=== PATIENT | male | born 1950 | race Caucasian/White ===

== ENCOUNTER 2017-05-21 18:28 | Emergency (ER) | payer OTHER ==
[~2017-05-21] VITALS: Ht 182.9 cm; Wt 85.5 kg
[~2017-05-21 18:28] MED LIST: ASPI-664 PO; ATOR40TA68 PO; EXCED PO; LYR75 PO; OXYC30TA64 PO; RANI150T9 PO
[2017-05-21 18:38] VITALS: Ht 182.9 cm; Wt 85.5 kg
[2017-05-21] MEDS ORDERED: ASPIRIN 81 MG TAB PO ONE (20:00)
[2017-05-21 20:11] LABS: BASOPHIL # 0.1 10^3/ul (0.0-0.1); BASOPHILS % 1.2 % (0.0-2.0); EOSINOPHILS % 0.8 % (0.0-7.0); HEMATOCRIT 43.2 % (42.0-52.0); HEMOGLOBIN 14.6 g/dl (14.0-18.0); LYMPHOCYTES # 1.4 10^3/ul (0.8-2.9); LYMPHOCYTES % 28.6 % (15.0-51.0); MEAN CORPUSCULAR HEMOGLOBIN 31.3 pg (29.0-33.0); MEAN CORPUSCULAR HGB CONC 33.8 g/dl (32.0-37.0); MEAN CORPUSCULAR VOLUME 92.5 fl (82.0-101.0); MEAN PLATELET VOLUME 9.8 fl (7.4-10.4); MONOCYTE # 0.5 10^3/ul (0.3-0.9); MONOCYTES % 9.6 % (0.0-11.0); NEUTROPHILS % 59.4 % (39.0-77.0); PLATELET COUNT 192 10^3/UL (140-415); RED BLOOD COUNT 4.67 10^6/ul (4.70-6.10); RED CELL DISTRIBUTION WIDTH 13.2 % (11.5-14.5); WHITE BLOOD COUNT 4.9 10^3/ul (4.8-10.8)
[2017-05-21 20:26] LABS: ALANINE AMINOTRANSFERASE 53 IU/L (13-69); ALBUMIN 4.6 g/dl (3.3-4.9); ALBUMIN/GLOBULIN RATIO 1.24; ALKALINE PHOSPHATASE 66 IU/L (42-121); ANION GAP 14 (8-16); ASPARTATE AMINO TRANSFERASE 33 IU/L (15-46); BILIRUBIN,INDIRECT 0.2 mg/dl (0-1.1); BILIRUBIN,TOTAL 0.2 mg/dl (0.2-1.3); BLOOD UREA NITROGEN 23 mg/dl (7-20); CALCIUM 9.4 mg/dl (8.4-10.2); CARBON DIOXIDE 24 mmol/L (21-31); CHLORIDE 104 mmol/L (97-110); CREATININE 1.14 mg/dl (0.61-1.24); GLUCOSE 113 mg/dl (70-220); POTASSIUM 3.7 mmol/L (3.5-5.1); SODIUM 138 mmol/L (135-144); TOTAL PROTEIN 8.3 g/dl (6.1-8.1)
[2017-05-21 20:43] LABS: B-TYPE NATRIURETIC PEPTIDE 138 PG/ML (0-125)
--- NOTE | 2017-05-21 20:46 | RADRPT ---
PROCEDURE: XR Chest. CLINICAL INDICATION: Chest and abdominal pain TECHNIQUE: AP Portable chest. COMPARISON: None available FINDINGS: The soft tissues and bones are remarkable for multiple EKG leads superimposed over chest wall. 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 No focal infiltrates , masses, or effusions are noted. The mediastinum and heart are normal. No pneumothorax is present . IMPRESSION: 1. No radiographic evidence for acute cardiopulmonary disease RPTAT: HDC .Fernanda Daley MD, MD Date Time Electronically viewed and signed by .Fernanda Daley MD, MD on 05/21/2017 20:46 .C/
[2017-05-21 20:50] LABS: TROPONIN-I < 0.012 ng/ml (0.00-0.12)
[2017-05-21 21:30] VITALS: BP 125/77; PULSE 70; RESP 20; TEMP 98.4
[2017-05-21] MEDS ORDERED: TRAM-40 PO (21:55)
[2017-05-21] MEDS ORDERED: OMEG-135 PO (21:55)
[2017-05-21] MEDS ORDERED: IBUP800T25 PO (21:55)
[2017-05-21] MEDS ORDERED: CALC-277 PO (21:55)
[2017-05-21] MEDS ORDERED: SIMV40TA2 PO (21:55)
--- NOTE | 2017-05-21 22:26 | ERD ---
ER Documentation Chief Complaint Date/Time DATE: 05/21/17 TIME: 22:05 Chief Complaint sent by omd for cp and sob x 3 days with abnormal ekg at the clinic HPI 66-year-old man referred by his PMD for possible abnormal EKG. Patient states he has been having dyspnea on exertion 8 months and it has been getting worse over the last 2 months. He denies recent chest pain, no cough, no fevers or chills, no calf or leg swelling, no vomiting or diarrhea. Patient was sent here with a no for ER evaluation. Patient does have a prescription of nitroglycerin which she uses infrequently. ROS All systems reviewed and are negative except as per history of present illness. Medications Home Meds Active Scripts Aspirin* (Aspirin* EC) 81 Mg Tablet.dr, 81 MG PO DAILY for 30 Days, TAB Prov:EDGAR HACKETT CLINICAL APPLICATIONS MANAGER 08/18/16 Atorvastatin* (Atorvastatin*) 40 Mg Tablet, 40 MG PO HS for 30 Days, TAB Prov:EDGAR HACKETT CLINICAL APPLICATIONS MANAGER 08/17/16 Reported Medications Bowden-3 Fatty Acids/Fish Oil (Fish Oil 1,000 mg Capsule) 1 Each Capsule, 1 EACH PO, CAP 05/21/17 Calcium Carbonate/Vitamin D3 (OYSTER SHELL 500 MG + VIT D TB) 1 Each Tablet, 1 EACH PO, TAB 05/21/17 Tramadol Hcl* (Ultram*) 50 Mg Tablet, 50 MG PO Q8, TAB 05/21/17 Simvastatin* (Zocor*) 40 Mg Tablet, 40 MG PO QHS, #30 TAB 05/21/17 Ibuprofen* (Ibuprofen*) 800 Mg Tab, 400 MG PO Q6H Y for PAIN, TAB 05/21/17 Pregabalin* (Lyrica*) 75 Mg Capsule, 75 MG PO TID, CAP 08/17/16 Acetaminophen/Aspirin/Caffeine* (Excedrin*) 1 Tab Tab, 1 TAB PO, TAB 08/17/16 Ranitidine Hcl* (Zantac*) 150 Mg Tablet, 150 MG PO BID, TAB 12/28/14 Discontinued Reported Medications Oxycodone Hcl* (Oxycontin*) 30 Mg Tab.sr.12h, 30 MG PO Q12, TAB 12/28/14 Allergies Allergies: Coded Allergies: No Known Allergy (Unverified , 05/21/17) PMhx/Soc Coronary artery disease, PCI with stent placement, hypertension, dyslipidemia History of Surgery: Yes (cardiac stent in 2010) Anesthesia Reaction: Yes Hx Neurological Disorder: No Hx Respiratory Disorders: No Hx Cardiac Disorders: Yes (stent 2009) Hx Psychiatric Problems: Yes (depression, insomnia) Hx Miscellaneous Medical Probl: No Hx Alcohol Use: No Hx Substance Use: No Hx Tobacco Use: Yes (QUIT SMOKING CIGARETTES X 6MOS) Smoking Status: Former smoker FmHx Family History: No diabetes Physical Exam Vitals Vital Signs Date Time Temp Pulse Resp B/P Pulse Ox O2 Delivery O2 Flow Rate FiO2 05/21/17 21:30 98.4 70 20 125/77 98 Room Air 05/21/17 20:08 98.4 81 22 130/81 95 Room Air 05/21/17 18:38 97.9 100 20 106/70 97 Physical Exam GENERAL: Well-developed, well-nourished, well-hydrated, in no apparent distress , looks nontoxic in appearance HEENT: Moist mucous membranes, pink conjunctiva, no cervical spine tenderness or step-off deformities, no goiter, no jaundice or icterus, extraocular movements intact without pain. No submandibular induration, and no pharyngeal erythema NEURO: Alert and oriented 3, cranial nerves II through XII intact bilaterally, pupils equal round reactive to light, no focal deficits or facial asymmetry, sensation intact distally Strength 5/5 in upper and lower extremities bilaterally CARDIAC: Regular rate and rhythm, no murmurs rubs or gallops LUNGS: Clear bilaterally no wheezing crackles or stridor ABDOMEN: Soft nontender, no guarding, no rigidity, no rebound, no psoas sign no obturator sign. Normoactive bowel sounds SKIN: Warm and dry to touch, no abrasions, contusions, or hematomas, no lacerations, no ecchymosis, no target lesions, and without ulcers EXTREMITIES: No clubbing cyanosis or edema, calves are bilaterally symmetrical, no Homans sign, no popliteal cord sign. Distal pulses equal and bilateral PSYCH: Normal affect without agitation or irritability Result Diagram: 05/21/17 1950 05/21/171949 Results 24 hrs Laboratory Tests Test 05/21/17 19:50 White Blood Count 4.910^3/ul Red Blood Count 4.6710^6/ul Hemoglobin 14.6g/dl Hematocrit 43.2% Mean Corpuscular Volume 92.5fl Mean Corpuscular Hemoglobin 31.3pg Mean Corpuscular Hemoglobin Concent 33.8g/dl Red Cell Distribution Width 13.2% Platelet Count 88420^3/UL Mean Platelet Volume 9.8fl Neutrophils % 59.4% Lymphocytes % 28.6% Monocytes % 9.6% Eosinophils % 0.8% Basophils % 1.2% Nucleated Red Blood Cells % 0.0/100WBC Neutrophils # (Manual) 310^3/ul Lymphocytes # 1.410^3/ul Monocytes # 0.510^3/ul Eosinophils # 0.010^3/ul Basophils # 0.110^3/ul Nucleated Red Blood Cells # 0.010^3/ul Sodium Level 138mmol/L Potassium Level 3.7mmol/L Chloride Level 104mmol/L Carbon Dioxide Level 24mmol/L Anion Gap 14 Blood Urea Nitrogen 23mg/dl Creatinine 1.14mg/dl Glucose Level 113mg/dl Calcium Level 9.4mg/dl Total Bilirubin 0.2mg/dl Direct Bilirubin 0.00mg/dl Indirect Bilirubin 0.2mg/dl Aspartate Amino Transf (AST/SGOT) 33IU/L Alanine Aminotransferase (ALT/SGPT) 53IU/L Alkaline Phosphatase 66IU/L Troponin I < 0.012ng/ml B-Type Natriuretic Peptide 138PG/ML Total Protein 8.3g/dl Albumin 4.6g/dl Globulin 3.70g/dl Albumin/Globulin Ratio 1.24 Lipase 42U/L Current Medications Medications (Trade) Dose Ordered Sig/Ebony Route PRN Reason Start Time Stop Time Status Last Admin Dose Admin Aspirin (Aspirin) 324 mg ONCE ONCE PO 05/21/17 20:00 05/21/17 20:01 DC 05/21/17 20:07 Procedures/MDM IV line was established patient was placed on condominium manager rhythm strip revealed a sinus rhythm at about 90 bpm. Patient was afebrile. Chest X-ray 1V Interpreted by me: Soft Tissue: No acute abnormalities Bones: No acute abnormalities Mediastinum/Cardiac Silhouette/Lungs: No acute abnormalities EKG performed, read by me revealed a normal sinus rhythm at 96 bpm, left axis deviation, with a right ventricular conduction delay 106 ms, no concerning ST elevations or depressions noted. First-degree atrial ventricular block at 232 ms. CBC and electrolytes are normal, liver function tests normal, troponin negative , BNP negative. The patient's history, physical exam and clinical presentation is concerning for possible cardiogenic etiology and acute coronary syndrome. Based on the patient's clinical exam and history and risk factors, I have a much lower clinical concern for pulmonary embolism, acute aortic dissection, pneumothorax, pneumonia, cardiac tamponade HEART Score: 3 for age and risk factors MACE Rate: 1.7 Shared Decision Making: We had a conversation regarding risk stratification, MACE rate, and the risks, benefits, alternatives of disposition planning options. Disposition planning: After speaking to the patient and his who was at the bedside regarding the patient's recent EKG, ED workup and management they preferred outpatient follow-up with marketing writer. I do not suspect today's symptoms which are really an extension of his symptoms which have been ongoing for the last 2-8 months or anything acute. Therefore it is safe to manage him as an outpatient with expedited cardiology consult and possible provocative stress testing. Differential diagnoses considered, included but not limited to acute coronary syndrome, pulmonary embolism, aortic dissection, abdominal aortic aneurysm, sepsis, stroke, meningitis, encephalitis, pneumonia, appendicitis, cholecystitis , bowel obstruction, pyelonephritis, nephrolithiasis, cystitis, as well as metabolic, hematologic, and electrolyte abnormalities. As well as abscess, cellulitis, fractures, and dislocations. Patient feels much better at this time, and vital signs are normal, symptoms have improved. I did give strict instructions to return to the ED if symptoms continue or worsen, patient will otherwise follow-up with primary care physician. Patient understood instructions and agreed to plan. Disclaimer: Inadvertent spelling and grammatical errors are likely due to EHR/ dictation software use and do not reflect on the overall quality of patient care. Also, please note that the electronic time recorded on this note does not necessarily reflect the actual time of the patient encounter. Departure Diagnosis: Primary Impression: Stable angina Condition: Good Patient Instructions: Angina, Stable Referrals: DONALD VILLANUEVA MD, DAVID MD May 21, 2017 22:26
== END 2017-05-21 21:50 | disposition home or self-care (01) ==
LOC: E/R 18:28
DX: I20.9 Angina pectoris, unspecified (principal); I10 Essential (primary) hypertension; R06.02 Shortness of breath; Z98.61 Coronary angioplasty status; Z87.891 Personal history of nicotine dependence; Z79.82 Long term (current) use of aspirin
CPT/HCPCS: 36415; 71010; 80053; 83690; 83880; 84484; 85025; 93005; Z7502; Z7610